=== PATIENT | male | born 1970 | race Two or more races ===

== ENCOUNTER 2023-12-27 10:01 | Emergency (ER) | payer OTHER ==
[~2023-12-27] VITALS: Ht 175.3 cm; Wt 127.2 kg
[2023-12-27 10:31] VITALS: TEMP 98.3; O2SAT 100
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
[2023-12-27] MEDS: MORPHINE SULFATE INJ 2 MG/ml SYRG IM ONE (11:13)
[2023-12-27 11:52] VITALS: BP 143/87; PULSE 87; RESP 17
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
[2023-12-27] MEDS ORDERED: HYDR-4072 PO (14:43)
[2023-12-27] MEDS ORDERED: IBUP1TAB5 PO (14:43)
== END 2023-12-27 13:32 | disposition home or self-care (01) ==
LOC: ER 10:01 → EDBD 10:01 → ER 13:31
DX: S52.691A Other fracture of lower end of right ulna, initial encounter for closed fracture (principal); S52.592A Other fractures of lower end of left radius, initial encounter for closed fracture; S16.1XXA Strain of muscle, fascia and tendon at neck level, initial encounter; R07.89 Other chest pain; V89.2XXA Person injured in unspecified motor-vehicle accident, traffic, initial encounter; Y93.I9 Activity, other involving external motion; Y92.488 Other paved roadways as the place of occurrence of the external cause; Y99.8 Other external cause status
CPT/HCPCS: 29125; 71046; 72040; 73110; 96372; 99284; J2270